=== PATIENT | male | born 1995 | race Two or more races ===

== ENCOUNTER 2022-04-28 11:52 | Emergency (ER) | payer OTHER ==
[~2022-04-28] VITALS: Ht 175.3 cm; Wt 90.7 kg
[2022-04-28 14:20] VITALS: BP 123/86
[2022-04-28] MEDS ORDERED: IBUPROFEN 800 MG TAB PO ONE (15:15)
== END 2022-04-28 16:34 | disposition home or self-care (01) ==
LOC: ER 11:52
DX: S00.03XA Contusion of scalp, initial encounter (principal); R68.84 Jaw pain; Y04.2XXA Assault by strike against or bumped into by another person, initial encounter; Y93.89 Activity, other specified; Y92.89 Other specified places as the place of occurrence of the external cause; Y99.8 Other external cause status
CPT/HCPCS: 70450; 70486